=== PATIENT | female | born 1985 | race Caucasian/White ===

== ENCOUNTER 2022-08-16 14:05 | Emergency (ER) | payer OTHER ==
[2022-08-16 14:35] VITALS: BP_SYST 118
[2022-08-16] MEDS ORDERED: MORPHINE 4 MG INJ. 4 MG/ML VIAL IM ONE (14:45)
[2022-08-16] MEDS ORDERED: ONDANSETRON 4 MG ODT TAB PO ONE (14:45)
[2022-08-16 15:08] LABS: BILIRUBIN,URINE NEGATIVE (NEGATIVE); BLOOD, URINE NEGATIVE (NEGATIVE); CLARITY/URINE CLEAR (CLEAR); COLOR,URINE YELLOW (YELLOW); GLUCOSE,URINE NEGATIVE (NEGATIVE); KETONES,URINE NEGATIVE (NEGATIVE); LEUKOCYTE ESTERASE ,URINE NEGATIVE (NEGATIVE); NITRITE, URINE NEGATIVE (NEGATIVE); PROTEIN URINE NEGATIVE (NEGATIVE); UROBILINOGEN,URINE 0.2 (0.2-1.0)
[2022-08-16 15:11] LABS: HCG,QUAL RESULT NEGATIVE (NEGATIVE)
[2022-08-16] MEDS ORDERED: DICL75TA5 PO (16:15)
[2022-08-16] MEDS ORDERED: BACL20TA PO (16:15)
[2022-08-16 16:40] VITALS: BP_SYST 104
== END 2022-08-16 16:50 | disposition home or self-care (01) ==
LOC: SED 14:05
DX: M54.50 Low back pain, unspecified (principal); G89.29 Other chronic pain; Z88.6 Allergy status to analgesic agent; Z79.899 Other long term (current) drug therapy
CPT/HCPCS: 99283; 84703; 81025; 96372; 81003; Q0162; J2270